=== PATIENT | male | born 1985 | race American Indian/Alaskan Native ===

== ENCOUNTER 2020-12-28 16:04 | Emergency (ER) | payer MEDICAID ==
[2020-12-28] MEDS ORDERED: Ketorolac 60 MG/2 ML SDV IM ONE (16:30)
[2020-12-28] MEDS ORDERED: Ketorolac 60 MG/2 ML SDV ONE (16:39)
--- NOTE | 2020-12-28 17:37 | EDM.PDOC ---
ED HPI GENERAL MEDICAL PROBLEM - General Chief Complaint: Back Pain or Injury Stated Complaint: LOW BACK PAIN Time Seen by Provider: 12/28/20 16:55 Source of Information: Reports: Patient, RN History Limitations: Reports: No Limitations - History of Present Illness INITIAL COMMENTS - FREE TEXT/NARRATIVE: 35 YO obese Diabetic male here for low back pain and muscle strain. Pain has been increasing for the past week. He has had X-rays recently, awaiting to get an MRI per PCP for further evaluation. ROM is full in all planes. Pain increased in flexion. Pain appears to be mostly paraspinal and wraps to the left. He can not attribute symptoms to any recent event or injury. He has taken 2 Advil with no relief. No loss of bowl or bladder. No fever. Lungs are CTA. Normal HRR. 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 Left Lower Back Pain Score (Numeric/FACES): 9 - Related Data Allergies Allergy/AdvReac Type Severity Reaction Status Date / Time No Known Allergies Allergy Verified 12/28/20 16:48 Home Meds: Home Meds Gabapentin [Neurontin] 300 mg PO TID 12/28/20 [History] atoMOXetine HCl [Strattera] 80 mg PO DAILY 12/28/20 [History] glipiZIDE [Glucotrol XL] 5 mg PO DAILY 12/28/20 [History] metFORMIN [Glucophage] 1,000 mg PO BIDMEALS 12/28/20 [History] Social & Family History - Tobacco Use Tobacco Use Status *Q: Current Every Day Tobacco User ED ROS GENERAL - Review of Systems Review Of Systems: Comprehensive ROS is negative, except as noted in HPI. Musculoskeletal: Reports: Back Pain, Muscle Pain, Muscle Stiffness ED EXAM,LOWER BACK PAIN/INJURY - Physical Exam Exam: See Below Exam Limited By: No Limitations General Appearance: Alert, WD/WN, Mild Distress Eye Exam: Bilateral Eye: PERRL Ears: Normal External Exam Nose: Normal Inspection Throat/Mouth: Normal Inspection, Normal Lips, Normal Teeth Head: Atraumatic, Normocephalic Neck: Normal Inspection, Supple, Non-Tender, Full Range of Motion Respiratory/Chest: No Respiratory Distress, Lungs Clear, Normal Breath Sounds Cardiovascular: Normal Peripheral Pulses, Regular Rate, Rhythm, No Edema GI/Abdominal: Normal Bowel Sounds, Soft, Non-Tender Back Exam: Normal Inspection, Other (limited flexion) Extremities: Normal Inspection, Normal Range of Motion, Non-Tender, No Pedal Edema Neurological: Alert, Normal Mood/Affect, CN II-XII Intact, Normal Gait, No Motor/Sensory Deficits, Oriented x 3 Psychiatric: Normal Affect, Normal Mood Skin Exam: Warm, Dry, Intact, Normal Color Lymphatic: No Adenopathy Course - Vital Signs Last Recorded V/S: Last Vital Signs Temp 36.8 C 12/28/20 16:17 Pulse 101 H 12/28/20 16:17 Resp 16 12/28/20 16:17 BP 121/87 12/28/20 16:17 Pulse Ox 99 12/28/20 16:17 - Orders/Labs/Meds Meds: Medications Discontinued Medications Generic Name Dose Route Start Last Admin Trade Name Aida PRN Reason Stop Dose Admin Ketorolac Tromethamine Confirm 12/28/20 16:39 12/28/20 16:55 Ketorolac 60 Mg/2 Ml Sdv Administered 12/28/20 16:40 Not Given Dose 60 mg .ROUTE .STK-MED ONE Ketorolac Tromethamine 60 mg 12/28/20 16:30 Ketorolac 60 Mg/2 Ml Sdv IM 12/28/20 16:31 ONETIME ONE Departure - Departure Time of Disposition: 16:50 Disposition: Home, Self-Care 01 Condition: Good Clinical Impression: Muscle spasm of back Repetitive strain injury of lower back Qualifiers: Encounter type: initial encounter Qualified Code(s): S39.012A - Strain of muscle, fascia and tendon of lower back, initial encounter; X50.3XXA - Overexertion from repetitive movements, initial encounter - Discharge Information *PRESCRIPTION DRUG MONITORING PROGRAM REVIEWED*: No Instructions: Cyclobenzaprine tablets, Chronic Back Pain, [id number], Acetaminophen; Codeine tablets Referrals: Mikala Siegel PR[employer]ER [Primary Care Provider] - Additional Instructions: Fill prescriptions for pain medication and muscle relaxer today and take as prescribed. Do not drive when taking narcotic pain medications. May apply heat or ice to affected area intermittently-on for 10-15 minutes every 1-2 hours as needed. Diet and activity as tolerated. Follow up with regular provider for further evaluation regarding imaging as discussed. Call with any questions. FU with PCP for MRI evaluation Take T# 3 and Cyclobenzaprine at night for symptoms. Do not drive when taking these medications. Use heat to affected area. RT to ED or see PCP for new or worsening symptoms Sepsis Event Note (ED) - Evaluation Sepsis Screening Result: No Definite Risk - Focused Exam Vital Signs: Vital Signs Temp Pulse Resp BP Pulse Ox 12/28/20 16:17 36.8 C 101 H 16 121/87 99 - Assessment/Plan Assessment:: Low back strain, Muscle spasms. Plan: FU with PCP for MRI evaluation Take T# 3 and Cyclobenzaprine at night for symptoms. Do not drive when taking these medications. Use heat to affected area. RT to ED or see PCP for new or worsening symptoms
== END 2020-12-28 16:45 | disposition home or self-care (01) ==
LOC: LB.ED 16:04
DX: S39.012A Strain of muscle, fascia and tendon of lower back, initial encounter (principal); M62.830 Muscle spasm of back; E11.9 Type 2 diabetes mellitus without complications; E66.9 Obesity, unspecified; Z68.41 Body mass index [BMI] 40.0-44.9, adult; Z72.0 Tobacco use; Z79.84 Long term (current) use of oral hypoglycemic drugs; X50.3XXA Overexertion from repetitive movements, initial encounter
CPT/HCPCS: 96372; 99283; J1885

== ENCOUNTER 2021-03-03 12:03 | Emergency (ER) | payer MEDICAID ==
--- NOTE | 2021-03-03 12:35 | EDM.PDOC ---
ED HPI GENERAL MEDICAL PROBLEM - General Chief Complaint: General Stated Complaint: RIGHT HAND PAIN / INFECTION? Time Seen by Provider: 03/03/21 12:05 Source of Information: Reports: Patient History Limitations: Reports: No Limitations - History of Present Illness INITIAL COMMENTS - FREE TEXT/NARRATIVE: 35 year old male presents to ED with right wrist pain. He had carpal tunnel surgery 2 weeks ago, has had increased pain in right wrist for the past 3 nights causing him to wake. Sutures are still in place. He is concerned if the site is infected. He has left wrist surgery tomorrow. Denies any fever, cough, CP, SOB, n/v/d. Right Arm Pain Score (Numeric/FACES): 4 - Related Data Allergies Allergy/AdvReac Type Severity Reaction Status Date / Time No Known Allergies Allergy Verified 12/28/20 16:48 Home Meds: Home Meds Gabapentin [Neurontin] 300 mg PO TID 12/28/20 [History] atoMOXetine HCl [Strattera] 80 mg PO DAILY 12/28/20 [History] glipiZIDE [Glucotrol XL] 5 mg PO DAILY 12/28/20 [History] metFORMIN [Glucophage] 1,000 mg PO BIDMEALS 12/28/20 [History] Hydrocodone/Acetaminophen [Hydrocodon-Acetaminophen 5-325] 1 each PO Q6HR #5 tablet 03/03/21 [Rx] Past Medical History Musculoskeletal History: Reports: Back Pain, Chronic, Other (See Below) Other Musculoskeletal History: carpel tunnel surgery Neurological History: Reports: Neuropathy, Diabetic Psychiatric History: Reports: Anxiety Endocrine/Metabolic History: Reports: Diabetes, Type II Dermatologic History: Reports: Psoriasis - Past Surgical History Musculoskeletal Surgical History: Reports: Carpal Tunnel Social & Family History - Family History Family Medical History: No Pertinent Family History - Tobacco Use Tobacco Use Status *Q: Current Some Day Tobacco User Years of Tobacco use: 10 Packs/Tins Daily: 1 - Caffeine Use Caffeine Use: Reports: Coffee - Recreational Drug Use Recreational Drug Use: No ED ROS GENERAL - Review of Systems Review Of Systems: See Below Constitutional: Reports: No Symptoms HEENT: Reports: No Symptoms Respiratory: Reports: No Symptoms Cardiovascular: Reports: No Symptoms Endocrine: Reports: No Symptoms GI/Abdominal: Reports: No Symptoms : Reports: No Symptoms Musculoskeletal: Reports: Arm Pain, Hand Pain Skin: Reports: Wound Neurological: Reports: No Symptoms Psychiatric: Reports: No Symptoms Hematologic/Lymphatic: Reports: No Symptoms Immunologic: Reports: No Symptoms ED EXAM, GENERAL - Physical Exam Exam: See Below Exam Limited By: No Limitations General Appearance: Alert, No Apparent Distress Ears: Normal External Exam, Hearing Grossly Normal Nose: Normal Inspection, No Blood Throat/Mouth: Normal Lips, Normal Teeth, Normal Voice, No Airway Compromise Head: Atraumatic Neck: Normal Inspection, Non-Tender, Full Range of Motion Respiratory/Chest: No Respiratory Distress, Lungs Clear, Normal Breath Sounds, No Accessory Muscle Use Cardiovascular: Normal Peripheral Pulses, Regular Rate, Rhythm, No Edema GI/Abdominal: Non-Tender Back Exam: Full Range of Motion Extremities: Normal Inspection, Normal Range of Motion, Non-Tender, No Pedal Edema, Normal Capillary Refill, Other (slight sewlling to right hand, Full ROM with pain, no signs of infection at surgical site) Neurological: Alert, Oriented, Normal Cognition, Normal Gait, No Motor/Sensory Deficits Psychiatric: Normal Affect, Normal Mood Skin Exam: Warm, Dry, Normal Color, No Rash, Wound/Incision Lymphatic: No Adenopathy Course - Vital Signs Last Recorded V/S: Last Vital Signs Temp 98 F 03/03/21 12:05 Pulse 77 03/03/21 12:05 Resp 18 03/03/21 12:05 BP 128/76 03/03/21 12:05 Pulse Ox 97 03/03/21 12:05 Departure - Departure Time of Disposition: 12:30 Disposition: Home, Self-Care 01 Condition: Good Clinical Impression: Post-op pain - Discharge Information *PRESCRIPTION DRUG MONITORING PROGRAM REVIEWED*: Not Applicable *COPY OF PRESCRIPTION DRUG MONITORING REPORT IN PATIENT FRANCIS: Not Applicable Prescriptions: Hydrocodone/Acetaminophen [Hydrocodon-Acetaminophen 5-325] 1 each PO Q6HR #5 tablet Instructions: Pain Relief Before and After Surgery Referrals: PCP,None [Primary Care Provider] - Forms: ED Department Discharge Additional Instructions: Follow up with your surgeon tomorrow as planned. Take 600-800mg ibuprofen with food every 6-8 hours. Take the pain pills for severe pain. Elevate right wrist to help decrease swelling. Sepsis Event Note (ED) - Focused Exam Vital Signs: Vital Signs Temp Pulse Resp BP Pulse Ox 03/03/21 12:05 98 F 77 18 128/76 97
== END 2021-03-03 12:40 | disposition home or self-care (01) ==
LOC: LB.ED 12:03
DX: G89.18 Other acute postprocedural pain (principal); M79.641 Pain in right hand; E11.40 Type 2 diabetes mellitus with diabetic neuropathy, unspecified; Z72.0 Tobacco use; Z79.84 Long term (current) use of oral hypoglycemic drugs
CPT/HCPCS: 99282; 99283

== ENCOUNTER 2021-04-23 16:50 | Emergency (ER) | payer MEDICAID ==
[2021-04-23] MEDS ORDERED: Albuterol/Ipratropium 3.0-0.5 MG/3 ML Neb Soln NEB ONE (17:27)
--- NOTE | 2021-04-23 17:38 | EDM.PDOC ---
ED HPI GENERAL MEDICAL PROBLEM - General Chief Complaint: General Stated Complaint: cough Time Seen by Provider: 04/23/21 17:05 Source of Information: Reports: Patient History Limitations: Reports: No Limitations - History of Present Illness INITIAL COMMENTS - FREE TEXT/NARRATIVE: patient presented to the ER with a c/o persistent cough. He reports that he was started on PO abx for this few days ago, but still coughing and low grade fever.. no phlegm. 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 no CP. no GI symptoms. Abdominal Pain Score (Numeric/FACES): 5 - Related Data Allergies Allergy/AdvReac Type Severity Reaction Status Date / Time No Known Allergies Allergy Verified 04/23/21 16:55 Home Meds: Home Meds glipiZIDE [Glucotrol XL] 5 mg PO DAILY 12/28/20 [History] metFORMIN [Glucophage] 1,000 mg PO BIDMEALS 12/28/20 [History] Pantoprazole Sodium [Protonix] 40 mg PO DAILY #21 tablet.dr 04/23/21 [Rx] Potassium Chloride 10 meq PO DAILY #10 tab.er.prt 04/23/21 [Rx] Pregabalin [Lyrica] 100 mg PO BID 04/23/21 [History] buPROPion [Wellbutrin] 150 mg PO DAILY 04/23/21 [History] predniSONE [Prednisone] 10 mg PO 10 04/23/21 [History] Past Medical History Musculoskeletal History: Reports: Back Pain, Chronic, Other (See Below) Other Musculoskeletal History: carpel tunnel surgery Neurological History: Reports: Neuropathy, Diabetic Psychiatric History: Reports: Anxiety Endocrine/Metabolic History: Reports: Diabetes, Type II Dermatologic History: Reports: Psoriasis - Past Surgical History Musculoskeletal Surgical History: Reports: Carpal Tunnel Social & Family History - Family History Family Medical History: No Pertinent Family History - Tobacco Use Years of Tobacco use: 2 Packs/Tins Daily: 0.5 - Caffeine Use Caffeine Use: Reports: Coffee - Recreational Drug Use Recreational Drug Use: Yes Recreational Drug Type: Reports: Marijuana/Hashish Recreational Drug Use Frequency: Weekly ED ROS GENERAL - Review of Systems Review Of Systems: See Below Constitutional: Reports: Chills HEENT: Reports: No Symptoms Respiratory: Reports: Cough Cardiovascular: Reports: No Symptoms GI/Abdominal: Reports: No Symptoms : Reports: No Symptoms Musculoskeletal: Reports: No Symptoms Skin: Reports: No Symptoms Neurological: Reports: No Symptoms ED EXAM, GENERAL - Physical Exam Exam: See Below Exam Limited By: No Limitations General Appearance: Alert, WD/WN, No Apparent Distress Eye Exam: Bilateral Eye: EOMI, PERRL Head: Atraumatic Respiratory/Chest: No Respiratory Distress, Lungs Clear, Normal Breath Sounds Cardiovascular: Normal Peripheral Pulses, Regular Rate, Rhythm GI/Abdominal: Normal Bowel Sounds, Soft, Non-Tender Extremities: Normal Inspection Neurological: Alert, Oriented, No Motor/Sensory Deficits Skin Exam: Warm, Dry Course - Vital Signs Last Recorded V/S: Last Vital Signs Temp 36.6 C 04/23/21 17:57 Pulse 110 H 04/23/21 18:23 Resp 18 04/23/21 17:57 BP 122/89 04/23/21 17:57 Pulse Ox 97 04/23/21 18:23 - Orders/Labs/Meds Labs: Laboratory Tests 04/23/21 04/23/21 04/23/21 Range/Units 17:31 18:00 18:00 WBC 11.2 H (4.0-11.0) K/uL RBC 5.31 (4.50-6.50) M/uL Hgb 15.7 (13.0-18.0) g/dL Hct 45.4 (40.0-54.0) % MCV 86 (76-96) fL MCH 29.6 (27.0-32.0) pg MCHC 34.6 (31.0-35.0) g/dL RDW 14.1 (11.0-16.0) % Plt Count 298 (150-400) K/uL MPV 8.9 (6.0-10.0) fL Neut % (Auto) 66.8 (45.0-70.0) % Lymph % (Auto) 23.9 (20.0-40.0) % [place] % (Auto) 6.8 (3.0-10.0) % Eos % (Auto) 2.2 (1.0-5.0) % Baso % (Auto) 0.3 (0.0-0.5) % Neut # (Auto) 7.46 (2.00-7.50) K/uL Lymph # (Auto) 2.66 (1.50-4.00) K/uL [place] # (Auto) 0.76 (0.20-0.80) K/uL Eos # (Auto) 0.24 (0.04-0.40) K/uL Baso # (Auto) 0.03 (0.02-0.10) K/uL Sodium 144 (136-145) mmol/L Potassium 3.1 L (3.5-5.1) mmol/L Chloride 105 (98-107) mmol/L Carbon Dioxide 26.4 (21.0-32.0) mmol/L Anion Gap 15.7 H (5.0-15.0) mmol/L BUN 13 (8-26) mg/dL Creatinine 1.03 (0.70-1.30) mg/dL Est Cr Clr Drug Dosing 111.96 mL/min Estimated GFR (MDRD) > 60 (>60) MLS/MIN BUN/Creatinine Ratio 12.6 (6-25) Glucose 143 H (74-100) mg/dL Calcium 8.7 (8.5-10.1) mg/dL SARS CoV-2 RNA Rapid NATALI Negative Meds: Medications Discontinued Medications Generic Name Dose Route Start Last Admin Trade Name Freq PRN Reason Stop Dose Admin Albuterol/Ipratropium 3 ml 04/23/21 17:27 04/23/21 17:30 Albuterol/Ipratropium 3.0-0.5 Mg/3 Ml Neb Soln NEB 04/23/21 17:28 3 ml ONETIME ONE Administration Potassium Chloride 20 meq 04/23/21 18:35 04/23/21 18:40 Potassium Chloride 20 Meq Tab.Er PO 04/23/21 18:36 20 meq ONETIME ONE Administration - Re-Assessments/Exams Free Text/Narrative Re-Assessment/Exam: COVID test is negative labs - mild leukocytosis, and hypokalemia k was replaced sating well on RA - no in apparent distress Departure - Departure Time of Disposition: 18:38 Disposition: Home, Self-Care 01 Condition: Good Clinical Impression: Hypokalemia, Cough - Discharge Information *PRESCRIPTION DRUG MONITORING PROGRAM REVIEWED*: Not Applicable *COPY OF PRESCRIPTION DRUG MONITORING REPORT IN PATIENT FRANCIS: Not Applicable Prescriptions: Potassium Chloride 10 meq PO DAILY #10 tab.er.prt Pantoprazole Sodium [Protonix] 40 mg PO DAILY #21 tablet. 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 Sepsis Event Note (ED) - Evaluation Sepsis Screening Result: No Definite Risk - Problem List & Annotations (1) Cough SNOMED Code(s): 11236048 Code(s): R05 - COUGH Status: Acute Priority: Low (2) Hypokalemia SNOMED Code(s): 07237831 Code(s): E87.6 - HYPOKALEMIA Status: Acute Priority: Low - Problem List Review Problem List Initiated/Reviewed/Updated: Yes - Assessment/Plan Plan: - take antibiotics as prescribed - increase potassium in diet - more banana - 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
[2021-04-23] MEDS ORDERED: Azithromycin 250 MG Tab ONE (18:00)
[2021-04-23] MEDS ORDERED: Potassium Chloride 20 MEQ Tab.ER PO ONE (18:35)
== END 2021-04-23 18:53 | disposition home or self-care (01) ==
LOC: LB.ED 16:50
DX: R05 Cough (principal); E87.6 Hypokalemia; E11.40 Type 2 diabetes mellitus with diabetic neuropathy, unspecified; Z79.84 Long term (current) use of oral hypoglycemic drugs; Z79.899 Other long term (current) drug therapy; Z72.0 Tobacco use; Z20.822 Contact with and (suspected) exposure to COVID-19
CPT/HCPCS: 36415; 80048; 85025; 87635; 99283; A9270; J7620-GY; U0002

== ENCOUNTER 2024-11-23 22:05 | Emergency (ER) | payer MEDICAID ==
[2024-11-23] MEDS: Ketorolac 30 MG/ML SDV IM ONE (22:41)
[2024-11-23] MEDS: methylPREDNISolone Sodium Succinate 40 MG/1 ML SDV IM ONE (22:41)
[2024-11-23] MEDS ORDERED: Cyclobenzaprine 10 MG Tab ONE (23:30)
[2024-11-23] MEDS: Orphenadrine 60 MG/2 ML Inj IM ONE (23:41)
== END 2024-11-24 00:07 | disposition home or self-care (01) ==
LOC: LB.ED 22:05
DX: S73.101A Unspecified sprain of right hip, initial encounter (principal); E11.9 Type 2 diabetes mellitus without complications; F17.210 Nicotine dependence, cigarettes, uncomplicated; Z79.899 Other long term (current) drug therapy; W00.0XXA Fall on same level due to ice and snow, initial encounter; Y93.89 Activity, other specified
CPT/HCPCS: 96372; 99282; A9270; J1885; J2360; J2919

== ENCOUNTER 2024-11-30 19:25 | Emergency (ER) | payer MEDICAID ==
[2024-11-30] MEDS ORDERED: Sodium Chloride 0.9% 10 ML Syringe FLUSH PRN (19:55)
[2024-11-30] MEDS: Ketorolac 15 MG/ML SDV IVPUSH ONE (20:08)
[2024-11-30 20:16] LABS: BASOPHILS ABSOLUTE AUTO 0.02 K/uL (0.02-0.10); BASOPHILS PERCENT AUTO 0.1 % (0.0-0.5); EOSINOPHILS ABSOLUTE AUTO 0.06 K/uL (0.04-0.40); EOSINOPHILS PERCENT AUTO 0.4 % (1.0-5.0); HEMATOCRIT 38.3 % (40.0-54.0); HEMOGLOBIN 13.1 g/dL (13.0-18.0); LYMPHOCYTES PERCENT AUTO 9.4 % (20.0-40.0); MEAN CORPUSCULAR HEMOGLOBIN 27.3 pg (27.0-32.0); MEAN CORPUSCULAR HGB CONC 34.2 g/dL (31.0-35.0); MEAN CORPUSCULAR VOLUME 80 fL (76-96); MEAN PLATELET VOLUME 8.6 fL (6.0-10.0); MONOCYTES ABSOLUTE AUTO 1.12 K/uL (0.20-0.80); MONOCYTES PERCENT AUTO 7.1 % (3.0-10.0); NEUTROPHILS ABSOLUTE AUTO 13.18 K/uL (2.00-7.50); PLATELET COUNT,PLT 597 K/uL (150-400); RED CELL DISTRIBUTION WIDTH 14.6 % (11.0-16.0); WHITE BLOOD CELL COUNT,WBC 15.9 K/uL (4.0-11.0)
[2024-11-30] MEDS: HYDROmorphone 2 MG/ML Syringe ONE (20:35)
[2024-11-30] MEDS: HYDROmorphone 1 MG/ML Syringe IVPUSH ONE (20:36)
== END 2024-11-30 21:05 ==
LOC: SUPCPDRO 19:25 → LB.ED 19:25
DX: M25.551 Pain in right hip (principal); E11.42 Type 2 diabetes mellitus with diabetic polyneuropathy; Z79.84 Long term (current) use of oral hypoglycemic drugs; Z79.899 Other long term (current) drug therapy
CPT/HCPCS: 36415; 73502-RT; 82947; 85025; 86140; 87040; 96374; 96375; 99284-25; J1171; J1885

== ENCOUNTER 2024-12-26 20:20 | Emergency (ER) | payer MEDICAID ==
[2024-12-26] MEDS ORDERED: Sodium Chloride 0.9% 10 ML Syringe FLUSH PRN (22:52)
[2024-12-26] MEDS ORDERED: Enoxaparin 150 MG/1 ML Syringe ONE (23:00)
[2024-12-26 23:14] LABS: HEMATOCRIT 32.9 % (40.0-54.0); HEMOGLOBIN 10.6 g/dL (13.0-18.0); MEAN CORPUSCULAR HEMOGLOBIN 27.2 pg (27.0-32.0); MEAN CORPUSCULAR HGB CONC 32.2 g/dL (31.0-35.0); RED BLOOD CELL COUNT 3.89 M/uL (4.50-6.50); RED CELL DISTRIBUTION WIDTH 15.7 % (11.0-16.0); WHITE BLOOD CELL COUNT,WBC 6.5 K/uL (4.0-11.0)
[2024-12-26 23:30] LABS: ANION GAP 7.4 mmol/L (5.0-15.0); BUN/CREATININE RATIO 12.5 (6-25); C-REACTIVE PROTEIN 55.2 mg/L (<5.0); CALCIUM 8.7 mg/dL (8.5-10.1); CARBON DIOXIDE,CO2 27.1 mmol/L (21.0-32.0); CREATININE 0.96 mg/dL (0.70-1.30); EST CRCL DRUG DOSING (CG) 115.64 mL/min; MAGNESIUM 1.5 mg/dL (1.8-2.4); POTASSIUM,K 3.5 mmol/L (3.5-5.1)
[2024-12-26] MEDS: Sodium Chloride 0.9% 1,000 ML IV SCH (23:35)
[2024-12-26 23:49] LABS: COLOR,URINE OTHER
[2024-12-26 23:50] LABS: APPEARANCE,URINE CLOUDY (CLEAR); BILIRUBIN,URINE SMALL (NEGATIVE); GLUCOSE,URINE NEGATIVE (NEGATIVE); KETONES,URINE TRACE mg/dL (NEGATIVE); LEUKOCYTE ESTERASE,URINE NEGATIVE (NEGATIVE); NITRITE,URINE NEGATIVE (NEGATIVE); OCCULT BLOOD,URINE LARGE (NEGATIVE); PH,URINE 5.5 (5.0-8.0); PROTEIN,URINE 100 mg/dL (NEGATIVE); UROBILINOGEN,URINE 0.2 E.U./dL (0.2-1.0)
[2024-12-26 23:51] LABS: HYALINE CASTS,URINE FEW /HPF; SQUAMOUS EPITHELIAL CELLS,UR OCCASIONAL /HPF
[2024-12-26 23:52] LABS: FINE GRANULAR CASTS,URINE OCCASIONAL /HPF
[2024-12-27] MEDS: Magnesium Sulfat/D5W 1GM/100ML 1 GM in Premix Bag 1 BAG IV ONE ×2 (00:02→02:21)
[2024-12-27 00:36] LABS: INFLUENZA A NAA POSITIVE (NEGATIVE); INFLUENZA B NAA NEGATIVE (NEGATIVE); RESPIRATORY SYNCYTIAL VIR NAA NEGATIVE (NEGATIVE)
[2024-12-27 00:38] LABS: CORONAVIRUS COVID-19 NAA NEGATIVE (NEGATIVE)
[2024-12-27] MEDS: Sodium Chloride 0.9% 50 ML SDV FLUSH ONE (01:19)
[2024-12-27] MEDS: Iopamidol 755 Mg/ML 100 ML Bottle IV SCH (01:19)
[2024-12-27] MEDS: Enoxaparin 150 MG/1 ML Syringe SUBCUT ONE (02:31)
[2024-12-27 09:31] LABS: ANION GAP 13.4 mmol/L (5.0-15.0); BUN/CREATININE RATIO 9.9 (6-25); CALCIUM 7.7 mg/dL (8.5-10.1); CARBON DIOXIDE,CO2 24.2 mmol/L (21.0-32.0); CREATININE 0.81 mg/dL (0.70-1.30); EST CRCL DRUG DOSING (CG) 137.05 mL/min; POTASSIUM,K 3.6 mmol/L (3.5-5.1)
[2024-12-27 09:34] LABS: A/G RATIO 0.5 (0.8-2.0); ALBUMIN 2.3 g/dL (3.4-5.0); BILIRUBIN DIRECT 0.1 mg/dL (0.0-0.3); BILIRUBIN INDIRECT 0.2 mg/dL (<= 0.7); BILIRUBIN TOTAL 0.3 mg/dL (0.0-1.0); PROTEIN TOTAL,TP 7.2 g/dL (6.4-8.2)
[2024-12-27 10:48] VITALS: BP 116/73; PULSE 92
== END 2024-12-27 10:25 | disposition home or self-care (01) ==
LOC: LB.ED 20:20
DX: I26.99 Other pulmonary embolism without acute cor pulmonale (principal); E83.42 Hypomagnesemia; F12.90 Cannabis use, unspecified, uncomplicated; E11.9 Type 2 diabetes mellitus without complications; R00.0 Tachycardia, unspecified; F17.210 Nicotine dependence, cigarettes, uncomplicated; Z91.013 Allergy to seafood; Z79.4 Long term (current) use of insulin; Z79.899 Other long term (current) drug therapy; Z86.16 Personal history of COVID-19
CPT/HCPCS: 0241U; 36415; 71045; 71275; 80048; 80076; 81001; 83735; 85027; 85379; 86140; 93005; 93010; 96365; 96366; 96372; 99284; 99285-25; J1650; J3475; J3490; J7030; Q9967

== ENCOUNTER 2025-02-26 17:14 | Emergency (ER) | payer MEDICAID | END 2025-02-26 18:00 | disposition home or self-care (01) | LOC: LB.ED 17:14 | DX: G89.18 Other acute postprocedural pain (principal); M25.551 Pain in right hip; E11.9 Type 2 diabetes mellitus without complications; Z91.013 Allergy to seafood; Z79.899 Other long term (current) drug therapy | CPT/HCPCS: 99283 ==

== ENCOUNTER 2025-05-11 16:07 | Emergency (ER) | payer MEDICAID ==
[2025-05-11 17:19] LABS: BASOPHILS ABSOLUTE AUTO 0.02 K/uL (0.02-0.10); BASOPHILS PERCENT AUTO 0.1 % (0.0-0.5); EOSINOPHILS ABSOLUTE AUTO 0.09 K/uL (0.04-0.40); EOSINOPHILS PERCENT AUTO 0.6 % (1.0-5.0); LYMPHOCYTES ABSOLUTE AUTO 1.46 K/uL (1.50-4.00); LYMPHOCYTES PERCENT AUTO 9.0 % (20.0-40.0); MEAN PLATELET VOLUME 8.5 fL (6.0-10.0); MONOCYTES ABSOLUTE AUTO 1.19 K/uL (0.20-0.80); MONOCYTES PERCENT AUTO 7.3 % (3.0-10.0); NEUTROPHILS ABSOLUTE AUTO 13.46 K/uL (2.00-7.50); NEUTROPHILS PERCENT AUTO 83.0 % (45.0-70.0); PLATELET COUNT,PLT 340 K/uL (150-400); RED BLOOD CELL COUNT 4.29 M/uL (4.50-6.50); RED CELL DISTRIBUTION WIDTH 17.0 % (11.0-16.0); WHITE BLOOD CELL COUNT,WBC 16.2 K/uL (4.0-11.0)
[2025-05-11 17:39] LABS: A/G RATIO 0.8 (0.8-2.0); ALANINE AMINOTRANSFERASE,ALT 20.0 U/L (12-78); ASPARTATE AMNIOTRANSFERASE,AST 13.0 U/L (15-37); BILIRUBIN TOTAL 0.8 mg/dL (0.0-1.0); BLOOD UREA NITROGEN,BUN 7.0 mg/dL (8-26); CARBON DIOXIDE,CO2 24.8 mmol/L (21.0-32.0); CHLORIDE,CL 100.0 mmol/L (98-107); CREATININE 0.84 mg/dL (0.70-1.30); EST CRCL DRUG DOSING (CG) 139.99 mL/min; ESTIMATED GFR 115.0 mL/min (>60); GLUCOSE RANDOM 214.0 mg/dL (74-100); POTASSIUM,K 3.4 mmol/L (3.5-5.1); PROTEIN TOTAL,TP 7.5 g/dL (6.4-8.2); SODIUM,NA 137.0 mmol/L (136-145)
[2025-05-11 19:24] LABS: APPEARANCE,URINE CLEAR (CLEAR); GLUCOSE,URINE NEGATIVE (NEGATIVE); OCCULT BLOOD,URINE SMALL (NEGATIVE)
[2025-05-11] MEDS: fentaNYL 100 MCG/2 ML SDV IVPUSH ONE (19:42)
[2025-05-11] MEDS: Lactated Ringers 1,000 ML IV SCH (19:57)
[2025-05-11] MEDS: LORazepam 2 MG/ML SDV IVPUSH SCH (21:43)
[2025-05-11] MEDS: LORazepam 2 MG/ML SDV IVPUSH ONE (21:47)
[2025-05-11] MEDS: LORazepam 2 MG/ML SDV ONE (22:08)
== END 2025-05-11 21:54 ==
LOC: LB.ED 16:07
DX: T84.59XA Infection and inflammatory reaction due to other internal joint prosthesis, initial encounter (principal); E11.9 Type 2 diabetes mellitus without complications; E66.9 Obesity, unspecified; F17.200 Nicotine dependence, unspecified, uncomplicated; Z91.030 Bee allergy status; Z79.899 Other long term (current) drug therapy; Z86.16 Personal history of COVID-19; Z68.30 Body mass index [BMI] 30.0-30.9, adult
CPT/HCPCS: 36415; 73700-RT; 74176; 80053; 81001; 83605; 83735; 85025; 86140; 87040; 96365; 96375; 99285-25; A0425; A0428; A9270-GY; J2060; J2543; J3010; J7030; J7120

== ENCOUNTER 2025-05-13 15:50 | Emergency (ER) | payer MEDICAID ==
[2025-05-13 17:02] LABS: BASOPHILS ABSOLUTE AUTO 0.02 K/uL (0.02-0.10); BASOPHILS PERCENT AUTO 0.1 % (0.0-0.5); EOSINOPHILS ABSOLUTE AUTO 0.27 K/uL (0.04-0.40); EOSINOPHILS PERCENT AUTO 1.9 % (1.0-5.0); LYMPHOCYTES ABSOLUTE AUTO 1.86 K/uL (1.50-4.00); LYMPHOCYTES PERCENT AUTO 13.3 % (20.0-40.0); MEAN PLATELET VOLUME 8.3 fL (6.0-10.0); MONOCYTES ABSOLUTE AUTO 0.96 K/uL (0.20-0.80); MONOCYTES PERCENT AUTO 6.9 % (3.0-10.0); NEUTROPHILS ABSOLUTE AUTO 10.86 K/uL (2.00-7.50); NEUTROPHILS PERCENT AUTO 77.8 % (45.0-70.0); PLATELET COUNT,PLT 346 K/uL (150-400); RED BLOOD CELL COUNT 4.15 M/uL (4.50-6.50); RED CELL DISTRIBUTION WIDTH 17.1 % (11.0-16.0); WHITE BLOOD CELL COUNT,WBC 14.0 K/uL (4.0-11.0)
[2025-05-13 17:17] LABS: BLOOD UREA NITROGEN,BUN 9.0 mg/dL (8-26); CARBON DIOXIDE,CO2 25.0 mmol/L (21.0-32.0); CHLORIDE,CL 102.0 mmol/L (98-107); CREATININE 0.72 mg/dL (0.70-1.30); EST CRCL DRUG DOSING (CG) 163.32 mL/min; ESTIMATED GFR 121.0 mL/min (>60); GLUCOSE RANDOM 167.0 mg/dL (74-100); POTASSIUM,K 3.5 mmol/L (3.5-5.1); SODIUM,NA 138.0 mmol/L (136-145)
== END 2025-05-13 17:48 | disposition home or self-care (01) ==
LOC: LB.ED 15:50
DX: M25.551 Pain in right hip (principal); E11.40 Type 2 diabetes mellitus with diabetic neuropathy, unspecified; E66.9 Obesity, unspecified; F17.200 Nicotine dependence, unspecified, uncomplicated; Z79.899 Other long term (current) drug therapy; Z91.013 Allergy to seafood; Z86.16 Personal history of COVID-19; Z68.31 Body mass index [BMI] 31.0-31.9, adult; X58.XXXA Exposure to other specified factors, initial encounter
CPT/HCPCS: 36415; 80048; 83605; 85025; 86140; 96372; 99283; J0696; J2003